=== PATIENT | male | born 1945 ===

== ENCOUNTER 2021-04-01 16:05 | Emergency (ER) | payer MEDICARE ==
[2021-04-01] MEDS ORDERED: GLIPIZIDE ER2.5 MG PO (16:50)
[2021-04-01] MEDS ORDERED: NORMODYNE/TRAN100 MG PO (16:50)
[2021-04-01] MEDS ORDERED: LISINOPRIL20 MG PO (16:50)
[2021-04-01 17:11] VITALS: BP 154/80
[2021-04-01] MEDS ORDERED: KEFLEX500 MG PO (17:11)
== END 2021-04-01 17:20 | disposition home or self-care (01) ==
LOC: ED 16:05
DX: S51.811A Laceration without foreign body of right forearm, initial encounter (principal); I10 Essential (primary) hypertension; W27.0XXA Contact with workbench tool, initial encounter; Y93.H2 Activity, gardening and landscaping; Y92.79 Other farm location as the place of occurrence of the external cause